=== PATIENT | male | born 1990 | race American Indian/Alaskan Native ===

== ENCOUNTER 2016-11-11 22:58 | Emergency (ER) | payer SELFPAY ==
[2016-11-12 02:21] LABS: Basophils % (Auto) 0.3 % (0.0-1.8); Eosinophils % (Auto) 1.1 % (0.0-4.3); Hematocrit 45.6 % (35.5-45.6); Hemoglobin 15.2 gm/dl (11.8-15.2); Mean Corpuscular HGB Conc 33 % (32-34); Mean Corpuscular Hemoglobin 31 pg (28-32); Mean Corpuscular Volume 94 fl (84-94); Platelet Count 235 K/mm3 (140-440); Red Blood Count 4.85 M/mm3 (3.65-5.03); White Blood Count 8.1 K/mm3 (4.5-11.0)
[2016-11-12 02:44] LABS: Bilirubin,Urine NEG (Negative); Blood,Urine NEG (Negative); Ketones,Urine NEG (Negative); Leukocyte Esterase,Urine NEG (Negative); Mucus,Urine FEW /HPF; Nitrite,Urine NEG (Negative); Protein,Urine <15 mg/dL mg/dL (Negative); Urobilinogen,Urine < 2.0 mg/dL (<2.0); WBC,Urine < 1.0 /HPF (0.0-6.0)
--- NOTE | 2016-11-12 06:33 | Emergency Department Report ---
HPI - General Chief Complaint: Urogenital-Male Time Seen by Provider: 11/12/16 06:25 - HPI HPI: Is a 26-year-old male presents to ED stating that he got a call from the health department about a week ago stating he had been exposed to syphilis. Patient states he is here to be tested and treated. She denies any fever/chills/nausea/vomiting/penile discharge plus and the lesions/abdominal pain/chest pain or any other problems ED Past Medical Hx - Past Medical History Previous Medical History?: Yes Hx HIV: Yes - Surgical History Past Surgical History?: No - Medications Home Medications: Home Medications Medication Instructions Recorded Confirmed Last Taken Type Doxycycline [Vibramycin CAP] 100 mg PO Q12HR #28 capsule 11/12/16 Unknown Rx ED Review of Systems ROS: Stated complaint: POSS STD Other details as noted in HPI Constitutional: denies: chills, fever Eyes: denies: eye pain, eye discharge, vision change ENT: denies: ear pain, throat pain Respiratory: denies: cough, shortness of breath, wheezing Cardiovascular: denies: chest pain, palpitations Endocrine: no symptoms reported Gastrointestinal: denies: abdominal pain, nausea, diarrhea Genitourinary: denies: urgency, dysuria Musculoskeletal: denies: back pain, joint swelling, arthralgia Skin: denies: rash, lesions, pruritus Neurological: denies: headache, weakness, numbness, paresthesias, confusion Psychiatric: denies: anxiety, depression Hematological/Lymphatic: denies: easy bleeding, easy bruising Physical Exam - Physical Exam Vital Signs: Vital Signs 11/12/16 01:15 Temperature 98.2 F Pulse Rate 74 Respiratory 18 Rate Blood Pressure 124/90 O2 Sat by Pulse 100 Oximetry Physical Exam: GENERAL: Alert and oriented x3, no apparent distress, Normal Gait, atraumatic. HEAD: Head is normocephalic and a-traumatic. MOUTH:Mouth is well hydrated and without lesions. Patent airways. NECK: Supple. Non edematous, No carotid bruits. No lymphadenopathy or thyromegaly. No C-spine tenderness LUNGS: Symetrical with respiration, No wheezing, no rales or crackles, CTAB. HEART: S1, S2 present, regular rate and rhythm without murmur, no rubs, no gallops. EXTREMITIES/MUSCULOSKELETAL: No cyanosis, clubbing, rash, lesions or edema. Full ROM bilaterally. UE/LE Pulses 2+ bilaterally. LE and UE 5+ strength bilaterally, straight leg raise negative bilaterally NEUROLOGIC: No focal Deficit, Cranial nerves II through XII are grossly intact. No loss of sensation PSYCHIATRIC: Mood is congruent with affect, denies suicidal or homicidal ideations. SKIN: Warm and dry, No lesions, No ulceration or induration present. ED Course Vital Signs 11/12/16 01:15 Temperature 98.2 F Pulse Rate 74 Respiratory 18 Rate Blood Pressure 124/90 O2 Sat by Pulse 100 Oximetry ED Medical Decision Making - Lab Data Result diagrams: 11/12/16 01:56 - Medical Decision Making 26-year-old male presents with a syphilis exposure 2-4 weeks ED course: Patient to receive treatment for syphilis exposure given, Rocephin, azithromycin and doxycycline Discussed with patient will need to go to the health department for further STD testing. Discussed with patient incubation period of syphilis is anywhere from 21-90 days. Discussed will get prophylaxis treatment today and was negative go get tested couple of months Discussed the takes it doxycycline as prescribed the entire dose as prescribed Patient received Rocephin and azithromycin in the ED today Vital signs are stable patient is no acute or respiratory distress. Patient understands all discussed and follow-up instructions. Critical care attestation.: If time is entered above; I have spent that time in minutes in the direct care of this critically ill patient, excluding procedure time. ED Disposition Clinical Impression: Syphilis contact, untreated Disposition: DISCHARGED TO HOME OR SELFCARE Is pt being admited?: No Does the pt Need Aspirin: No Condition: Stable Instructions: Syphilis (ED), Sexually Transmitted Diseases in Adolescents (ED) , Sexually Transmitted Diseases (ED) Additional Instructions: Follow-up with the health department for further testing. Take medication as prescribed Prescriptions: Doxycycline [Vibramycin CAP] 100 mg PO Q12HR #28 capsule Referrals: PRIMARY CARE, [Primary Care Provider] - 3-5 Days [facility] [Outside] - 3-5 Days [facility] [Outside] - 3-5 Days [facility] [Outside] - 3-5 Days Forms: Work/School Release Form(ED) Time of Disposition: 06:38
[2016-11-12] MEDS ORDERED: ROCEPHIN IM ONE (06:36)
[2016-11-12] MEDS ORDERED: ZITHROMAX PO ONE (06:36)
[2016-11-12] MEDS ORDERED: XYLOCAINE 1% MPF 5 mL INFILTRATI ONE (06:36)
[2016-11-12 07:01] VITALS: BP 120/80
== END 2016-11-12 07:19 | disposition home or self-care (01) ==
LOC: ED 22:58
DX: Z20.2 Contact with and (suspected) exposure to infections with a predominantly sexual mode of transmission (principal)
CPT/HCPCS: 36415; 81001; 85025; 96372; 99283; J0696

== ENCOUNTER 2021-10-15 00:35 | Emergency (ER) | payer SELFPAY ==
[2021-10-15] MEDS ORDERED: ZIPRASIDONE MESYLATE 20 MG VIAL IM ONE ×2 (01:03)
[2021-10-15 04:22] VITALS: BP 98/60
[2021-10-15 04:37] LABS: Basophils # (Auto) 0.1 K/mm3 (0.0-0.1); Basophils % (Auto) 0.7 % (0.0-1.8); Eosinophils % (Auto) 0.6 % (0.0-4.3); Hematocrit 48.3 % (35.5-45.6); Hemoglobin 16.5 gm/dl (11.8-15.2); Lymphocytes # (Auto) 2.2 K/mm3 (1.2-5.4); Lymphocytes % (Auto) 29.2 % (13.4-35.0); Mean Corpuscular HGB Conc 34 % (32-34); Mean Corpuscular Volume 95 fl (84-94); Monocytes # (Auto) 0.8 K/mm3 (0.0-0.8); Monocytes % (Auto) 10.9 % (0.0-7.3); Platelet Count 301 K/mm3 (140-440); Red Blood Count 5.07 M/mm3 (3.65-5.03)
[2021-10-15 04:46] LABS: BUN/Creatinine Ratio 10; Blood Urea Nitrogen 9 mg/dL (9-20); Calcium 9.5 mg/dL (8.4-10.2); Hemolysis Index 46
--- NOTE | 2021-10-15 05:11 | Emergency Department Report ---
ED Psych HPI - General Chief Complaint: Psych Stated Complaint: HALLUCINATION Time Seen by Provider: 10/15/21 01:03 Source: patient, family Mode of arrival: Ambulatory Limitations: No Limitations - History of Present Illness Initial Comments: Pt reports A/V/H onset Friday. Pt reports Meth use last time being Friday. Pt denies SI/HI. Per pts mother, pt has been pacing, and not sleeping. Pt is aaox3. MD Complaint: altered mental status -: Gradual, days(s) Associated Psychiatric Symptoms: racing thoughts, auditory hallucinations, delusions History of same: Yes Quality: constant Worsens With: drug use Context: recent drug abuse Associated Symptoms: confusion. denies: nausea, vomiting Treatments Prior to Arrival: none - Related Data Previous Rx's Medication Instructions Recorded Last Taken Type DOXYCYCLINE Hyclate [Vibramycin 100 mg PO Q12HR #28 capsule 11/12/16 Unknown Rx CAP] Allergies Allergy/AdvReac Type Severity Reaction Status Date / Time No Known Allergies Allergy Verified 10/15/21 01:04 ED Review of Systems ROS: Stated complaint: HALLUCINATION Other details as noted in HPI Comment: Unobtainable due to pts medical conditions ED Past Medical Hx - Past Medical History Previous Medical History?: Yes Hx Hypertension: No Hx CVA: No Hx HIV: Yes Additional medical history: Meth use - Social History Smoking Status: Never Smoker Substance Use Type: None - Medications Home Medications: Home Medications Medication Instructions Recorded Confirmed Last Taken Type DOXYCYCLINE Hyclate [Vibramycin 100 mg PO Q12HR #28 capsule 11/12/16 Unknown Rx CAP] ED Physical Exam - General Limitations: No Limitations General appearance: alert, other (responding to internal stimulli ) - Head Head exam: Present: atraumatic, normocephalic - Eye Eye exam: Present: normal appearance - ENT ENT exam: Present: mucous membranes moist - Neck Neck exam: Present: normal inspection - Respiratory Respiratory exam: Present: normal lung sounds bilaterally. Absent: respiratory distress - Cardiovascular Cardiovascular Exam: Present: regular rate, normal rhythm. Absent: systolic murmur, diastolic murmur, rubs, gallop - GI/Abdominal GI/Abdominal exam: Present: soft, normal bowel sounds - Rectal Rectal exam: Present: deferred - Extremities Exam Extremities exam: Present: normal inspection - Back Exam Back exam: Present: normal inspection - Neurological Exam Neurological exam: Present: alert, oriented X3 - Psychiatric Psychiatric exam: Present: agitated, anxious - Expanded Psychiatric Exam Expanded Focused psych exam: Present: pressured speech, perseverating - Skin Skin exam: Present: warm, dry, intact, normal color. Absent: rash ED Course Vital Signs 10/15/21 10/15/21 10/15/21 00:55 01:07 03:40 Temperature 98.4 F 98.3 F Pulse Rate 119 H 107 H Respiratory 18 18 Rate Blood Pressure 151/93 Blood Pressure 98/60 [Right] O2 Sat by Pulse 98 100 97 Oximetry 10/15/21 09:07 Temperature Pulse Rate Respiratory Rate Blood Pressure Blood Pressure [Right] O2 Sat by Pulse 97 Oximetry ED Medical Decision Making - Lab Data Result diagrams: 10/15/21 04:08 10/15/21 04:08 - Medical Decision Making medically cleared for psych assessment Critical care attestation.: If time is entered above; I have spent that time in minutes in the direct care of this critically ill patient, excluding procedure time. ED Disposition Clinical Impression: Substance abuse, Psychosis Disposition: 01 HOME / SELF CARE / HOMELESS Is pt being admited?: No Does the pt Need Aspirin: No Condition: Stable Instructions: Psychosis Additional Instructions: Drink plenty of water. Return for problems. Follow-up with a regular doctor and follow-up as directed by behavioral health. Professional and Agency Contacts To help Res[facility] Crises(24/02) [place] Crisis Line: Suicide Prevention Line: Crisis Text Line: Text START to [phone] Emergency: 911 Outpatient COMMUNITY Behavioral Health Resources: [place]: [facility] [address] [place], [place] [address] SANDY R[place]GE: [facility] [address] [place] [address] [place]: [facility] - [address] [place] [address] Friday thru Friday - 8am - 5pm [place]: [facility] Address: [address], [place] [address] [facility] Address: [address] [place] [address] Friday thru Friday- 7am-2pm [facility] Address: [address] [place] [address] Friday thru Friday: 8:30AM-5PM In case of an emergency, please contact the following numbers: [place] Crisis and Access Line: Number: Crisis Text Line: (Text START) Number: 467573 Suicide Prevention Line: Number: Emergency Number: 911 SUBSTANCE ABUSE PROGRAMS: [facility]: Location: [place], [place] [facility] Address: [address] [place] [address] [facility]: Address: [address] [facility] [place] [address] [facility]: Address: [address] [place] [address] [facility]: Address: [address] [place] [address] [facility] Address: [address] [place] [address]. Please contact above numbers to attempt placement into free based program. Medicaid Programs: [facility]: Address: [address] [place] [address] [facility]: Address: [address] [place] [address] [facility] Cisco goal is to take chronically homeless men and help them overcome their barriers, change them as human beings, making them productive and self- sufficient individuals. Each [facility] participant is housed at our facility for up to a year while they participate in transitional work (earning $7.40/hr for 30+ hours per week). All participants renounce dependency and remain drug and alcohol free. Personal support, case management, and workforce training is offered throughout the program. We also provide AA/NA Classes, GED classes, support in obtaining a class b driver's licenses, help setting up a bank account, and life skill preparation c ourses. IF A MAN IS COMMITTED TO BEING CLEAN, TO ADDRESSING THE PAST, AND TO WORKING, WE WILL HELP HIM GET A SOCIAL SERVICES DESIGNEE JOB, TRANSPORTATION AND PERMANENT HOUSING WITHIN A YEAR. [place] [facility] [address] [phone] [email or web address] HOMELESS RESOURCES: [facility] NEED HELP? If you are in need of help or know someone who does, please contact us at [email or web address] or call , or come to our offices at [address] [place] [address], Friday-Friday beginning at 8AM. [facility] Males only Admission at 7am Fri to Fri Address: [address] [place] [address] Client Engagement Center [phone] Regular program admission occurs Friday through Friday at 7:00 am and operates on a first come, first serve basis. Because we cant anticipate program availability in advance and program spots are in high demand, we recommend arriving early. Space fills up fast! Next steps can include: Assignment to a [facility] program bed Connection to and placement in a partner program, or Referral to a partner agency [facility]: [facility] Address: [address] [place] [address] How do I join the [facility] housing program? Our housing programs are offered based on availability. If you are looking to participate in our housing program, simply call [phone] to find out if we have available space. Since we do receive many calls, please allow up to 48 hours for one of our housing specialists to return your call. If we do not have vacancies, we suggest calling the [facility] hotline at 211 for additional housing options. [facility] only Admission at 4:30pm daily Address: [place] [address] [facility] Admission from 8am to 10am Daily No intake until 07/31/20 Address: [place] [address] [facility] Admission Address: [address], [place] [address] Referrals: ELENA DURON MD [Primary Care Provider] - 3-5 Days
[2021-10-15 08:34] LABS: Benzodiazepines Screen,Urine Negative; Methadone Screen,Urine Negative; Opiate Screen,Urine Negative
[2021-10-15 08:54] LABS: Amphetamine Screen,Urine Positive; Cannabinoid Screen,Urine Positive; Cocaine Screen,Urine Positive
--- NOTE | 2021-10-15 09:00 | Consultation ---
History of Present Illness - Reason for Consult Consult date: 10/15/21 Reason for consult: hallucinations, drug use - History of Present Psychiatric Illness The patient was seen today. He is calm and cooperative. He says he was brought to the hospital because he "used some drugs." The patient says his mom wanted him to come because he was pacing and hearing things. He says he used "cocaine and meth." The patient says "I get like this every time I use drugs." He denies any hallucinations at present. He denies SI/HI or any fear of endangerment. The patient says he has a history of bipolar but never started any medications. He says "I don't take any psych meds. Really don't need them. I get like this after the drug use." I counselled the patient on drug cessation. PAST PSYCHIATRIC HISTORY Diagnoses: Bipolar Suicide attempts or Self-harm behavior: Denies Prior psychiatric hospitalizations: Denies Substance Abuse history: Cocaine, Meth Previous psychiatric medications tried: Denies Outpatient treatment: Denies PAST MEDICAL HISTORY: None reported Family Psychiatric History: None reported or documented SOCIAL HISTORY Living arrangement: lives with uncle Marital status: Single Employment status: Unemployed REVIEW OF SYSTEMS Constitutional: Negative for weight loss ENT: Negative for stridor Respiratory: Negative for cough or hemoptysis All other systems reviewed and are negative MENTAL STATUS EXAMINATION General Appearance and Behavior: Age appropriate, good hygiene, wearing appropriate clothes, good eye contact,cooperative Cooperation: Participating/engaged, but Guarded Psychomotor Behavior: Psychomotor normal Mood: okay Affect and affective range: congruent with stated mood Thought Process: goal directed Thought Content: None Speech: normal tone and pace Suicidal Ideation: Denies Homicidal Ideation: Denies Hallucinations: Denies Delusions: none elicited Impulse Control: Limited Insight and Judgment: Limited insight and judgment Memory: Normal Attention: Undivided Orientation: Alert, oriented Assessment and Plan Polysubstance Dependence with Substsance Induced Psychosis Hx of Bipolar Treatment d/c 1013 No scripts given at this time Sitter: Per primary Medical: Per primary Disposition: Do not recommend acute psychiatric inpatient treatment. The patient understands that if SI/HI or any fear of endangerment arise he is to seek immediate assistance The patient to establish and follow up with outpatient psych in 7 to 14 days u elias discharge. The planimeter operator to give all resources including CBT and drug rehab Will sign off. Thank you for this consult Case staffed with Dr. Caal Medications and Allergies Allergies Allergy/AdvReac Type Severity Reaction Status Date / Time No Known Allergies Allergy Verified 10/15/21 01:04 Home Medications Medication Instructions Recorded Confirmed Last Taken Type DOXYCYCLINE Hyclate [Vibramycin 100 mg PO Q12HR #28 capsule 11/12/16 Unknown Rx CAP] Mental Status Exam - Vital signs Last Vital Signs Temp 98.3 F 10/15/21 03:40 Pulse 107 H 10/15/21 03:40 Resp 18 10/15/21 03:40 BP 98/60 10/15/21 03:40 Pulse Ox 97 10/15/21 03:40 Results Result Diagrams: 10/15/21 04:08 10/15/21 04:08 Abnormal lab results 10/15/21 10/15/21 10/15/21 Range/Units 04:08 04:08 04:08 RBC 5.07 H (3.65-5.03) M/mm3 Hgb 16.5 H (11.8-15.2) gm/dl Hct 48.3 H (35.5-45.6) % MCV 95 H (84-94) fl MCH 33 H (28-32) pg RDW 13.0 L (13.2-15.2) % Pitkin % (Auto) 10.9 H (0.0-7.3) % Potassium 3.4 L (3.6-5.0) mmol/L Carbon Dioxide 21 L (22-30) mmol/L Salicylates < 0.3 L (2.8-20.0) mg/dL Acetaminophen (10.0-30.0) ug/mL 10/15/21 Range/Units 04:08 RBC (3.65-5.03) M/mm3 Hgb (11.8-15.2) gm/dl Hct (35.5-45.6) % MCV (84-94) fl MCH (28-32) pg RDW (13.2-15.2) % Pitkin % (Auto) (0.0-7.3) % Potassium (3.6-5.0) mmol/L Carbon Dioxide (22-30) mmol/L Salicylates (2.8-20.0) mg/dL Acetaminophen 5.0 L (10.0-30.0) ug/mL All other labs normal.
[2021-10-15 09:50] LABS: Bilirubin,Urine NEG (Negative); Blood,Urine NEG (Negative); Color,Urine Amber (Yellow); Hyaline Casts,Urine 23 /LPF; Mucus,Urine 3+ /HPF
--- NOTE | 2021-10-15 10:05 | Emergency Department Report ---
Blank Doc - Documentation Documentation: Patient has been medically cleared. Patient had been seen by psychiatric serv ices and cleared. He was not suicidal or homicidal. There is no evidence of acute delusion or psychosis. He was discharged and referred for outpatient follow-up.
== END 2021-10-15 12:15 | disposition home or self-care (01) ==
LOC: ED 00:35
DX: F29 Unspecified psychosis not due to a substance or known physiological condition (principal); F19.10 Other psychoactive substance abuse, uncomplicated; Z21 Asymptomatic human immunodeficiency virus [HIV] infection status; Z20.822 Contact with and (suspected) exposure to COVID-19
CPT/HCPCS: 36415; 80048; 80307; 81001; 85025; 96372; 99284; J3486; U0003; 80320; G0480

== ENCOUNTER 2021-11-18 17:55 | Emergency (ER) | payer SELFPAY ==
[2021-11-18] MEDS ORDERED: LORazepam 2 MG/ML VIAL ONE (19:50)
[2021-11-18] MEDS ORDERED: LORazepam 2 MG/ML VIAL IM ONE (19:57)
[2021-11-18 20:07] LABS: Amphetamine Screen,Urine PRESUMPTIVE POSITIVE; Benzodiazepines Screen,Urine PRESUMPTIVE NEGATIVE; Cannabinoid Screen,Urine PRESUMPTIVE POSITIVE; Cocaine Screen,Urine PRESUMPTIVE POSITIVE; Methadone Screen,Urine PRESUMPTIVE NEGATIVE; Opiate Screen,Urine PRESUMPTIVE NEGATIVE
[2021-11-18 20:19] LABS: Bacteria,Urine 1+ /HPF (Negative); Bilirubin,Urine NEG (Negative); Blood,Urine NEG (Negative); Color,Urine Yellow (Yellow); Mucus,Urine 3+ /HPF
[2021-11-18 20:50] LABS: Basophils % (Auto) 0.3 % (0.0-1.8); Eosinophils % (Auto) 0.5 % (0.0-4.3); Hemoglobin 16.9 gm/dl (11.8-15.2); Lymphocytes # (Auto) 2.5 K/mm3 (1.2-5.4); Mean Corpuscular HGB Conc 34 % (32-34); Mean Corpuscular Volume 92 fl (84-94); Monocytes # (Auto) 0.8 K/mm3 (0.0-0.8); Monocytes % (Auto) 8.8 % (0.0-7.3); Platelet Count 314 K/mm3 (140-440); Red Blood Count 5.41 M/mm3 (3.65-5.03); Red Cell Distribution Width 13.2 % (13.2-15.2)
[2021-11-18 21:03] LABS: BUN/Creatinine Ratio 9; Blood Urea Nitrogen 9 mg/dL (9-20); Calcium 9.4 mg/dL (8.4-10.2); Hemolysis Index 7
[2021-11-18 21:08] LABS: Alanine Aminotransferase 126 units/L (7-56); Albumin 4.7 g/dL (3.9-5); BUN/Creatinine Ratio 9; Blood Urea Nitrogen 9 mg/dL (9-20); Calcium 9.4 mg/dL (8.4-10.2); Hemolysis Index 5
--- NOTE | 2021-11-18 22:47 | Emergency Department Report ---
ED Psych HPI - General Chief Complaint: Psych Stated Complaint: PSYCH/HEROIN USE/R EAR PAIN Time Seen by Provider: 11/18/21 19:35 Source: patient, EMS Mode of arrival: Stretcher - History of Present Illness Initial Comments: PT [facility]. REPORTS R EAR PAIN, HEROIN USE. AUDITORY HALLUCINATIONS. DENIES SI/HI Complaint: other (hallucination) -: Gradual, hour(s) Quality: constant Context: recent drug abuse Associated Symptoms: denies: denies other symptoms, confusion, headache, shortness of breath, nausea, vomiting - Related Data Previous Rx's Medication Instructions Recorded Last Taken Type DOXYCYCLINE Hyclate [Vibramycin 100 mg PO Q12HR #28 capsule 11/12/16 Unknown Rx CAP] Allergies Allergy/AdvReac Type Severity Reaction Status Date / Time No Known Allergies Allergy Verified 11/18/21 17:58 ED Review of Systems ROS: Stated complaint: PSYCH/HEROIN USE/R EAR PAIN Other details as noted in HPI Constitutional: denies: chills, fever Eyes: denies: eye pain, eye discharge, vision change ENT: denies: ear pain, throat pain Respiratory: denies: cough, shortness of breath, wheezing Cardiovascular: denies: chest pain, palpitations Endocrine: no symptoms reported Gastrointestinal: denies: abdominal pain, nausea, diarrhea Genitourinary: denies: urgency, dysuria Musculoskeletal: denies: back pain, joint swelling, arthralgia Skin: denies: rash, lesions Neurological: denies: headache, weakness, paresthesias Psychiatric: denies: anxiety, depression Hematological/Lymphatic: denies: easy bleeding, easy bruising ED Past Medical Hx - Past Medical History Previous Medical History?: Yes Hx Hypertension: No Hx CVA: No Hx HIV: Yes Additional medical history: Meth use - Surgical History Past Surgical History?: No - Social History Smoking Status: Current Every Day Smoker Substance Use Type: Marijuana, Methamphetamines - Medications Home Medications: Home Medications Medication Instructions Recorded Confirmed Last Taken Type DOXYCYCLINE Hyclate [Vibramycin 100 mg PO Q12HR #28 capsule 11/12/16 Unknown Rx CAP] ED Physical Exam - General Limitations: No Limitations General appearance: alert, anxious - Head Head exam: Present: atraumatic, normocephalic - Eye Eye exam: Present: normal appearance - ENT ENT exam: Present: mucous membranes moist - Neck Neck exam: Present: normal inspection - Respiratory Respiratory exam: Present: normal lung sounds bilaterally. Absent: respiratory distress - Cardiovascular Cardiovascular Exam: Present: regular rate, normal rhythm. Absent: systolic murmur, diastolic murmur, rubs, gallop - GI/Abdominal GI/Abdominal exam: Present: soft, normal bowel sounds - Rectal Rectal exam: Present: deferred - Extremities Exam Extremities exam: Present: normal inspection - Back Exam Back exam: Present: normal inspection - Neurological Exam Neurological exam: Present: alert, oriented X3 - Psychiatric Psychiatric exam: Present: agitated, anxious - Expanded Psychiatric Exam Expanded Focused psych exam: Present: restlessness - Skin Skin exam: Present: warm, dry, intact, normal color. Absent: rash ED Course Vital Signs 11/18/21 11/18/21 11/18/21 17:56 19:27 19:36 Temperature 98 F 98.2 F Pulse Rate 103 H 103 H Respiratory 18 Rate Blood Pressure 145/104 Blood Pressure 145/105 [Left] O2 Sat by Pulse 100 100 99 Oximetry 11/18/21 11/18/21 11/18/21 19:46 20:00 20:16 Temperature Pulse Rate 131 H 112 H Respiratory 21 22 Rate Blood Pressure 146/100 154/99 124/77 Blood Pressure [Left] O2 Sat by Pulse 100 98 96 Oximetry 11/18/21 11/18/21 11/18/21 20:30 20:46 20:54 Temperature Pulse Rate 107 H 98 H Respiratory 15 22 Rate Blood Pressure 120/74 132/83 Blood Pressure [Left] O2 Sat by Pulse 95 97 100 Oximetry ED Medical Decision Making - Lab Data Result diagrams: 11/18/21 20:12 11/18/21 20:13 Critical care attestation.: If time is entered above; I have spent that time in minutes in the direct care of this critically ill patient, excluding procedure time. ED Disposition Clinical Impression: Psychosis, Substance-induced psychotic disorder Disposition: 30 STILL A PATIENT Is pt being admited?: No Does the pt Need Aspirin: No Condition: Stable Referrals: ELENA DURON MD [Primary Care Provider] - 3-5 Days
--- NOTE | 2021-11-19 09:14 | Consultation ---
History of Present Illness - Reason for Consult Consult date: 11/19/21 Reason for consult: Mental health evaluation - History of Present Psychiatric Illness The patient is a 31 year old male with history of bipolar and polysubstance use disorder. The patient was seen this morning. The patient is calm, alert and oriented x3. He reports hearing voices x 2 months. The patient reports cocaine use for the past 10 years uses about $20 worth twice a week. He denies any cur rent suicidal/homicidal ideation. PAST PSYCHIATRIC HISTORY Diagnoses: Denies Suicide attempts or Self-harm behavior: Denies Prior psychiatric hospitalizations: yes Substance Abuse history: Cocaine and Meth Previous psychiatric medications tried: Unable to recall Outpatient treatment: Unknown PAST MEDICAL HISTORY: unknown Family Psychiatric History: unknown SOCIAL HISTORY Marital Status: Single Living Arrangements: Lives with uncle Employment Status: Unemployed Access to guns/weapons: None reported Education: some college History of Abuse: None reported Legal History: None reported REVIEW OF SYSTEMS Constitutional: Negative for weight loss ENT: Negative for stridor Respiratory: Negative for cough or hemoptysis All other systems reviewed and are negative MENTAL STATUS EXAMINATION General Appearance and Behavior: Age appropriate, good hygiene, wearing appropriate clothes, fair eye contact, cooperative Cooperation: cooperative Mood: Calm Affect and affective range: congruent with mood Thought Process:Goal directed Thought Content: Reality oriented Speech:Normal Suicidal Ideation: Denies Homicidal Ideation: Denies Hallucinations:Auditory- non-commanding Delusions: None Impulse Control: Limited Insight and Judgment: Limited insight and judgment, Memory: Normal Attention: Normal Orientation: Alert, oriented Assessment and Plan (1) Hx of Bipolar Treatment Plan Zyprexa 10mg po QHS Trazodone 50mg po QHS Sitter: refer to medical Medical: per primary Disposition:Do not recommend acute psychiatric inpatient treatment. Digital Marketing Specialist will provide patient with psychiatric out patient resources. Will sign off. Thanks Case staffed with Dr. Caal Medications and Allergies Medications and Allergies Allergies Allergy/AdvReac Type Severity Reaction Status Date / Time No Known Allergies Allergy Verified 11/18/21 17:58 Home Medications Medication Instructions Recorded Confirmed Last Taken Type DOXYCYCLINE Hyclate [Vibramycin 100 mg PO Q12HR #28 capsule 11/12/16 Unknown Rx CAP] OLANzapine [ZyPREXA] 10 mg PO QHS 30 Days #30 11/19/21 Unknown Rx traZODone [Desyrel] 50 mg PO QHS 30 Days #30 tab 11/19/21 Unknown Rx Mental Status Exam - Vital signs Last Vital Signs Temp 98.6 F 11/19/21 04:11 Pulse 94 H 11/19/21 04:11 Resp 18 11/19/21 04:11 BP 98/59 11/19/21 04:11 Pulse Ox 100 11/19/21 05:00 Results Result Diagrams: 11/18/21 20:12 11/18/21 20:13 Abnormal lab results 11/18/21 11/18/21 11/18/21 Range/Units 20:12 20:12 20:12 RBC 5.41 H (3.65-5.03) M/mm3 Hgb 16.9 H (11.8-15.2) gm/dl Hct 50.0 H (35.5-45.6) % [place] % (Auto) 8.8 H (0.0-7.3) % Potassium (3.6-5.0) mmol/L AST (5-40) units/L ALT (7-56) units/L Total Creatine Kinase (55-170) units/L Total Protein (6.3-8.2) g/dL Salicylates < 0.3 L (2.8-20.0) mg/dL Acetaminophen 5.0 L (10.0-30.0) ug/mL 11/18/21 Range/Units 20:13 RBC (3.65-5.03) M/mm3 Hgb (11.8-15.2) gm/dl Hct (35.5-45.6) % [place] % (Auto) (0.0-7.3) % Potassium 3.5 L (3.6-5.0) mmol/L AST 56 H (5-40) units/L ALT 126 H (7-56) units/L Total Creatine Kinase 500 H (55-170) units/L Total Protein 8.8 H (6.3-8.2) g/dL Salicylates (2.8-20.0) mg/dL Acetaminophen (10.0-30.0) ug/mL All other labs normal.
--- NOTE | 2021-11-19 11:57 | Emergency Department Report ---
Blank Doc - Documentation Documentation: 31-year-old male with a past medical history of bipolar disorder, psychosis, p olysubstance abuse. Patient was evaluated by mental health and deemed stable for discharge with medications. UDS positive for cocaine and marijuana
--- NOTE | 2021-11-19 14:21 | Electrocardiograph Report ---
[facility] Test Date: 2021-11-18 Test Time: 20:39:22 Pat Name: VIKA CORDON Department: Room: Gender: M Seat Mender: LIZBETH : 1990 Requested By: AIRAM CHASE Order Number: [id number] Reading MD: Elli Smiley Measurements Intervals [place] Rate: 82 P: 71 VA: 176 QRS: 61 QRSD: 84 T: 50 QT: 337 QTc: 395 Interpretive Statements Sinus rhythm Right atrial enlargement Anterior infarct, old No previous ECG available for comparison Electronically Signed On 11-19-2021 14:21:23 EDT by Elli Smiley
[2021-11-19 15:06] VITALS: BP 119/68
== END 2021-11-19 12:00 | disposition home or self-care (01) ==
LOC: ED 17:55
DX: F29 Unspecified psychosis not due to a substance or known physiological condition (principal); F19.251 Other psychoactive substance dependence with psychoactive substance-induced psychotic disorder with hallucinations; H92.01 Otalgia, right ear; F17.200 Nicotine dependence, unspecified, uncomplicated; F12.90 Cannabis use, unspecified, uncomplicated; F15.90 Other stimulant use, unspecified, uncomplicated; Z79.899 Other long term (current) drug therapy
CPT/HCPCS: 36415; 80048; 80053; 80307; 81001; 82550; 85025; 93005; 96372; 99285; J2060; 80320; 99284; G0480

== ENCOUNTER 2021-12-24 01:51 | Emergency (ER) | payer SELFPAY ==
[2021-12-24 03:36] VITALS: BP 137/96
[2021-12-24 10:19] LABS: Benzodiazepines Screen,Urine Negative; Cocaine Screen,Urine Negative; Methadone Screen,Urine Negative; Opiate Screen,Urine Negative
[2021-12-24 10:28] LABS: Bilirubin,Urine NEG (Negative); Blood,Urine NEG (Negative); Color,Urine Amber (Yellow); Mucus,Urine 3+ /HPF
[2021-12-24 10:41] LABS: Amphetamine Screen,Urine Positive; Cannabinoid Screen,Urine Positive
== END 2021-12-25 09:43 | disposition left against medical advice (07) ==
LOC: ED 01:51
DX: F15.20 Other stimulant dependence, uncomplicated (principal); Z53.21 Procedure and treatment not carried out due to patient leaving prior to being seen by health care provider; Z79.899 Other long term (current) drug therapy
CPT/HCPCS: 80307; 81001

== ENCOUNTER 2021-12-24 08:30 | Emergency (ER) | payer SELFPAY ==
[2021-12-24 10:10] VITALS: BP 141/98
[2021-12-24 16:18] LABS: Amphetamine Screen,Urine Positive; Benzodiazepines Screen,Urine Negative; Cannabinoid Screen,Urine Positive; Cocaine Screen,Urine Negative; Methadone Screen,Urine Negative; Opiate Screen,Urine Negative
== END 2021-12-25 09:44 | disposition left against medical advice (07) ==
LOC: ED 08:30
DX: F15.20 Other stimulant dependence, uncomplicated (principal); Z53.21 Procedure and treatment not carried out due to patient leaving prior to being seen by health care provider; Z79.899 Other long term (current) drug therapy
CPT/HCPCS: 36415; 80307; 80320; G0480